=== PATIENT | male | born 1950 | race Caucasian/White ===

== ENCOUNTER → 2017-08-30 | Day surgery (SDC) | payer MEDICARE, BC ==
[~2017-08-30] MED LIST: Cyclopentolate 1% Opth Drop 2 ML BOT ONE; Diprivan 20 ML ONE; Fentanyl 100 MCG/2 ML VIAL ONE; Fluorouracil 100 MG, Enoxaparin Sodium 25 MG, EPINEPHrine 0.3 MG in Ophthalmic Irrigati... FS SCH; Lidocaine 2% PF 10 ML AMP (For Epidural Use) ONE; Midazolam HCl 2 mg/2 ml Vial ONE; Phenylephrine HCl 2.5% Ophth Soln 5 ML BOT ONE; Propofol 200 MG/20 ML VIAL ONE
--- NOTE | 2017-08-31 01:55 | OP ---
DATE OF PROCEDURE: 08/30/2017. PREOPERATIVE DIAGNOSIS: Rhegmatogenous retinal detachment, left eye. POSTOPERATIVE DIAGNOSIS: Rhegmatogenous retinal detachment, left eye. PROCEDURE: Pars plana vitrectomy and retinal detachment repair, left eye. SURGEON: Deonte Vaughn M.D. ANESTHESIA: Local monitored anesthesia care. PROCEDURE IN DETAIL: The patient was identified in the preoperative holding area. Appropriate infor med consent for the planned surgical procedure on the left eye had been obtained. The patient was tr ansported to the operative suite where appropriate cardiopulmonary monitoring was established. Local anesthesia was obtained using retrobulbar and modified Van Lint lid block using 50/50 mixture of 4% lidocaine and 0.75% bupivacaine. The patient was prepped and draped in the usual sterile manner for ophthalmic surgery on the left eye. Lid speculum was placed in the left eye. The 25-gauge trocars w ere placed in conjunctiva and sclera supratemporally, inferotemporally, and supranasally. Infusion l ine was placed inferotemporally. A light pipe and vitreous cutter were inserted into the eye. Core of vitrectomy was performed. Special attention was turned to the tear at 9:[address] reddy retinotomy was created inferior nasal to the nerve. Complete air fluid exchange was performed wi th 10 minutes being allowed for fluid to drain posteriorly. A 360 laser was placed using endolaser d elivery device. A 28% sulfur hexafluoride gas was infused into the eye. Trocars were removed. Eye was noted to retain pressure well. Retrobulbar Kenalog and subconjunctival Ancef were placed. Atrop ine and antibiotic ointment were placed and the eye was patched and shielded. The patient was taken to the postoperative recovery unit in good condition having suffered no immediate perioperative compl ications. The patient was instructed to keep patch and shield on, avoid lifting and bending, and fol low up in the morning with Dr. Vaughn.
== END ==
LOC: SDC 14:24
PROVIDERS: ATTEND Ophthalmology Retina Specialist
PROC: 08T53ZZ Resection of Left Vitreous, Percutaneous Approach (ICD-10-PCS; principal; 2017-08-30)
DX: H33.002 Unspecified retinal detachment with retinal break, left eye (principal); I10 Essential (primary) hypertension; E78.5 Hyperlipidemia, unspecified; I47.1 Supraventricular tachycardia
CPT/HCPCS: 67025; J0171; J1650; J2001; J2250; J2704; J3010; J9190

== ENCOUNTER → 2018-03-23 | Day surgery (SDC) | payer MEDICARE, BC ==
[2018-03-22 14:42] VITALS: BMI 30.7
[~2018-03-23] MED LIST changes: +Cyclopentolate 1% Opth Drop 2 ML BOT FS SCH; -Diprivan 20 ML ONE; -Fluorouracil 100 MG, Enoxaparin Sodium 25 MG, EPINEPHrine 0.3 MG in Ophthalmic Irrigati... FS SCH; +Lidocaine 1% PF 5 ML VIAL ONE; +Lidocaine 2% 10 ML INJ ONE; -Lidocaine 2% PF 10 ML AMP (For Epidural Use) ONE; +PROPOFOL 20 ML ONE; +PROPOFOL 200 MG/20 ML VIAL ONE; +Phenylephrine 2.5% Ophth Soln 5 ML BOT FS SCH; +Phenylephrine 2.5% Ophth Soln 5 ML BOT ONE; -Phenylephrine HCl 2.5% Ophth Soln 5 ML BOT ONE; -Propofol 200 MG/20 ML VIAL ONE
--- NOTE | 2018-03-23 08:06 | OP ---
DATE OF PROCEDURE: 03/23/2018 PREOPERATIVE DIAGNOSIS: Vitreous membranes, right eye. POSTOPERATIVE DIAGNOSIS: Vitreous membranes, right eye. PROCEDURE: Pars plana vitrectomy and membrane peel, right eye. SURGEON: Dr. Deonte Vaughn ANESTHESIA: Local with monitored anesthesia care. COMPLICATIONS: None. PROCEDURE IN DETAIL: The patient was identified in the preoperative holding area. Appropriate infor med consent for the planned surgical procedure on the right eye been obtained. The patient was trans ported to the operative suite. Appropriate cardiopulmonary monitoring established. Local anesthesia obtained using retrobulbar and modified Van Lint lid block using 50:50 mixture of 4% lidocaine and 0 .75% bupivacaine. The patient was prepped and draped in the usual sterile manner for ophthalmic surg naseem on the right eye. Lid speculum was placed in the right eye. The 25-gauge trocars placed in conj unctiva and sclera supratemporally, inferotemporally, and supranasally. Infusion line was placed inf erotemporally. Light pipe and vitreous cutter were inserted into the eye. Core vitrectomy was perfo rmed. Vitreous membranes were dissected from the retinal surface and peeled into the periphery. No holes. Indirect ophthalmoscopy exam the retina 306 degrees. No holes, breaks or tears were identifi ed. Trocars were removed and the eye was noted to retain pressure well. Retrobulbar Kenalog and sub conjunctival Ancef were placed. Atropine and antibiotic ointment were placed, and the eye was patche d and shielded. The patient was taken to the postoperative unit in good condition having suffered no immediate complications. DISCHARGE INSTRUCTIONS: The patient was instructed to keep patch and shield on, avoid lifting or elvia ding, and follow up in the morning with Dr. Vaughn.
== END ==
LOC: SDC 05:48
PROVIDERS: ATTEND Ophthalmology Retina Specialist
PROC: 08T43ZZ Resection of Right Vitreous, Percutaneous Approach (ICD-10-PCS; principal; 2018-03-23)
PROC: 08NE3ZZ Release Right Retina, Percutaneous Approach (ICD-10-PCS; 2018-03-23)
DX: H43.311 Vitreous membranes and strands, right eye (principal); Z79.82 Long term (current) use of aspirin; Z79.899 Other long term (current) drug therapy; Z79.52 Long term (current) use of systemic steroids
CPT/HCPCS: J2001; J2250; J2704; J3010